=== PATIENT | female | born 1955 | race Caucasian/White ===

== ENCOUNTER 2017-10-29 07:23 | Emergency (ER) | payer OTHER ==
[~2017-10-29] VITALS: Ht 157.5 cm; Wt 96.4 kg
[~2017-10-29 07:23] MED LIST: ACYCLOVIR400 MG PO; ALBUTEROL NEBS IH; ALBUTEROL2.5 MG/3 M IH; AMLODIPINE BESYL5 MG PO; AMOX TR-K CLV1 EAC4 PO; ASPIRIN81 M1 PO; Aspirin E.C. PO; BREO ELLIPTA I1 EACH IH; CALCITRIOL0.25 MCG PO; CEFTIN500 MG PO; CITRACAL + D C1 EACH PO; CITRACAL PLUS1 EAC1 PO; CRESTOR10 MG; Ceftin PO; FLONASE16 G1 BOTH NARES; GAMMAGARD LIQUI25 ML IV; LO-DOSE ASPIRIN81 M1 PO; LYRICA100 MG PO; LYRICA50 MG PO; PANTOPRAZOLE SO40 MG PO; PROAIR HFA8.5 GM IH; PROTONIX40 MG PO; Protonix PO; REVLIMID10 MG PO; REVLIMID5 MG PO; Rocaltrol PO; SERTRALINE HCL100 MG PO; TRUSOPT5 ML BOTH EYES; TYLENOL EXTRA500 MG PO; ZITHROMAX500 MG PO; ZOLOFT100 MG PO; ZOMETA 4 M4 MG/100 M IV; ZOMETA IV; Zithromax PO; Zoloft PO
[2017-10-29] MEDS ORDERED: NORCO 5/3251 TABLET PO (09:22)
[2017-10-29 09:43] VITALS: BP 155/82
== END 2017-10-29 09:43 | disposition home or self-care (01) ==
LOC: EME 07:23
PROC: 2W3LX1Z Immobilization of Right Lower Extremity using Splint (ICD-10-PCS; principal; 2017-10-29)
DX: S82.831A Other fracture of upper and lower end of right fibula, initial encounter for closed fracture (principal); X50.1XXA Overexertion from prolonged static or awkward postures, initial encounter; Y93.01 Activity, walking, marching and hiking
CPT/HCPCS: 73610; 99281; 99283